=== PATIENT | male | born 1950 | race Caucasian/White ===

== ENCOUNTER 2017-12-27 10:27 | Day surgery (SDC) | payer MEDICARE, BC ==
[2017-12-27] MEDS ORDERED: Sodium Chloride 0.9% 5 ML Syringe FLUSH PRN (10:30)
[2017-12-27] MEDS ORDERED: Sodium Chloride 0.9% 1,000 ML IV SCH (10:30)
[2017-12-27] MEDS ORDERED: Propofol 200 MG/20 ML SDV ONE (10:43)
[2017-12-27] MEDS ORDERED: Propofol 200 MG/20 ML SDV IV ONE (11:42)
--- NOTE | 2017-12-27 11:49 | PCM.PN ---
- General Info Date of Service: 12/27/17 - Review of Systems Systems Review Comment:: 67-year-old male referred by Neela Au for colonoscopy. He is medically stable to proceed today. There is been no significant change in his health status since his recent history and physical which is reviewed. This patient's last colonoscopy was over 20 years ago. He denies any recent change in bowel habits. He also denies any family history of colon cancer. I discussed the proposed colonoscopy with the patient. Risks such as but not limited to bleeding and GI injury reviewed. He agrees to proceed. - Patient Data Vitals - Most Recent: Last Vital Signs Temp 98.3 F 12/27/17 11:11 Pulse 71 12/27/17 11:11 Resp 16 12/27/17 11:11 BP 117/80 12/27/17 11:11 Pulse Ox 98 12/27/17 11:11 Weight - Most Recent: 83.915 kg Lab Results Last 24 Hours: Laboratory Results - last 24 hr 12/27/17 Range/Units 10:53 POC Glucose 118 H (74-106) mg/dl Med Orders - Current: Current Medications Sodium Chloride (Normal Saline) 1,000 mls @ 50 mls/hr IV ASDIRECTED YUMIKO Last Admin: 12/27/17 11:09 Dose: 50 mls/hr Sodium Chloride (Syrex Flush) 5 ml FLUSH Q8HR PRN PRN Reason: Keep Vein Open Discontinued Medications Propofol (Diprivan 20 Ml) Confirm Administered Dose 400 mg .ROUTE .STK-MED ONE Stop: 12/27/17 10:44 - Problem List Review Problem List Initiated/Reviewed/Updated: Yes - My Orders Last 24 Hours: My Active Orders 12/27/17 10:30 Blood Glucose Check, Bedside [RC] ONETIME Patient to Empty Bladder [RC] ASDIRECTED Peripheral IV Care [RC] . DIRECTED Verify Patient Consent Obtain [RC] ASDIRECTED Sodium Chloride 0.9% [Normal Saline] 1,000 ml IV ASDIRECTED Sodium Chloride 0.9% [Syrex Flush] 5 ml FLUSH Q8HR PRN Peripheral IV Insertion Adult [OM.PC] Routine 12/27/17 Breakfast Nothing Per Oral Diet [DIET] - Assessment Assessment:: colon cancer screening - Plan Plan:: Colonoscopy
--- NOTE | 2017-12-27 12:29 | PCM.OPNOTE ---
- General Post-Op/Procedure Note Date of Surgery/Procedure: 12/27/17 Operative Procedure(s): Colonoscopy with Polyp Removal Findings: Small cecal polyp Moderate left colon diverticulosis Internal hemorrhoids Pre Op Diagnosis: Colon cancer screening Post-Op Diagnosis: Colon polyp. Diverticulosis. Hemorrhoids Anesthesia Technique: MAC Primary Surgeon: Ashutosh Martinze Pathology: Cecal Polyp Output, Urine Amount: 0 EBL in mLs: 2 Complications: None Condition: Good
--- NOTE | 2017-12-28 13:13 | OR ---
DATE OF SURGERY: 12/27/2017 SURGEON: Ashutosh Martinez MD PREOPERATIVE DIAGNOSIS: Colon cancer screening. POSTOPERATIVE DIAGNOSIS: Cecal polyp, left colon diverticulosis, and internal hemorrhoids. OPERATION PERFORMED: Colonoscopy with polyp removal. INDICATIONS FOR SURGERY: This 67-year-old male is here for screening colonoscopy. His last colon exam was over 20 years ago. FINDINGS: The patient has a single small polyp in the cecum. It is 3 to 4 mm in size. He also has a moderate degree of diverticulosis involving the left colon, but this does not appear to be acutely inflamed or otherwise complicated and he has moderate-sized internal hemorrhoids. DESCRIPTION OF PROCEDURE: The patient was taken to the operating room. He was given intravenous sedation, and with him in the left lateral decubitus position, digital rectal exam was performed showing no rectal masses. The Olympus colonoscope was inserted into the rectum. Retroflexed examination of the rectal canal is performed. The scope was then carefully advanced under direct visualization through the entire length of the colon until the cecum is reached. Cecal acquisition is confirmed by noting the normal internal cecal anatomy including the appendiceal orifice and ileocecal valve. In the cecum, the above- described small polyp was identified. This was removed in its entirety with multiple bites of the biopsy forceps. The scope was then slowly withdrawn sequentially re-examining the colonic segments until the entire colon and rectum had been fully examined. The scope was removed, and the patient was taken from the operating room in satisfactory condition. ESTIMATED BLOOD LOSS: 2 mL. COMPLICATIONS: None. PROGNOSIS: Good. /[id number]/MODL
== END 2017-12-27 13:35 | disposition home or self-care (01) ==
LOC: KA.SDS 10:27
PROVIDERS: ATTEND Surgery
DX: Z12.11 Encounter for screening for malignant neoplasm of colon (principal); D12.0 Benign neoplasm of cecum; K57.30 Diverticulosis of large intestine without perforation or abscess without bleeding; K64.8 Other hemorrhoids; I10 Essential (primary) hypertension; E78.5 Hyperlipidemia, unspecified; E11.9 Type 2 diabetes mellitus without complications; N40.0 Benign prostatic hyperplasia without lower urinary tract symptoms; I48.91 Unspecified atrial fibrillation; Z79.01 Long term (current) use of anticoagulants; Z79.82 Long term (current) use of aspirin; Z79.899 Other long term (current) drug therapy; Z79.84 Long term (current) use of oral hypoglycemic drugs; Z87.891 Personal history of nicotine dependence
CPT/HCPCS: 00811; 82962; 88305; J2704; J7030